=== PATIENT | female | born 1990 ===

== ENCOUNTER → 2018-02-02 | Outpatient (CLI) | payer OTHER | END | disposition home or self-care (01) | LOC: SONOGRAMA 10:55 | DX: N84.0 Polyp of corpus uteri (principal) ==

== ENCOUNTER 2018-03-11 06:00 | Day surgery (SDC) | payer OTHER ==
[~2018-03-11 06:00] MED LIST: SYNTHROID112 MCG PO
== END 2018-03-11 20:20 | disposition home or self-care (01) ==
LOC: CIR.AMB 06:00
DX: N84.0 Polyp of corpus uteri (principal); N72 Inflammatory disease of cervix uteri

== ENCOUNTER → 2018-08-25 | Emergency (ER) | payer OTHER ==
[~2018-08-25] VITALS: Ht 162.6 cm; Wt 89.4 kg
== END | disposition home or self-care (01) ==
LOC: ER 10:31
DX: R10.2 Pelvic and perineal pain (principal)